=== PATIENT | male | born 1935 | race Caucasian/White ===

== ENCOUNTER → 2017-06-22 | Outpatient (CLI) | payer MEDICARE, BC ==
[~2017-06-22] MED LIST: ASPI-496 PO; CEFD300C37 PO; DIGO250T PO; FINA5TAB4 PO; FURO-93 PO; GABA-826 PO; LISI-167 PO; METF500T4 PO; METR500T PO; OMEP-110 PO; PRED10TA PO; SIMV40TA PO; TERA5CAP3 PO; TIOT18CA INH
[2017-06-22 09:41] LABS: BLOOD UREA NITROGEN 17 mg/dL (7-18)
[2017-06-22 09:42] LABS: ASPARTATE AMINO TRANSFERASE 26 U/L (15-37)
== END | disposition home or self-care (01) ==
LOC: LAB 09:13
PROVIDERS: ATTEND Internal Medicine Cardiovascular Disease
DX: E78.2 Mixed hyperlipidemia (principal); I10 Essential (primary) hypertension
CPT/HCPCS: 36415; 80053; 80061

== ENCOUNTER → 2018-08-09 | Outpatient (CLI) | payer MEDICARE, BC ==
[~2018-08-09] MED LIST changes: +METF500T17 PO; -METF500T4 PO
[2018-08-09 15:55] LABS: ALBUMIN 3.3 g/dL (3.4-5.0); ANION GAP 6 mmol/L (5-15); CALCIUM 8.4 mg/dL (8.5-10.1); CHLORIDE 97 mmol/L (98-107)
[2018-08-09 16:00] LABS: ALANINE AMINOTRANSFERASE 39 U/L (12-78); ALKALINE PHOSPHATASE 91 U/L (45-117); BILIRUBIN,TOTAL 0.6 mg/dL (0.2-1.0); CREATININE 0.63 mg/dL (0.7-1.3); TOTAL PROTEIN 6.2 g/dL (6.4-8.2)
== END | disposition home or self-care (01) ==
LOC: CFH 11:52
PROVIDERS: ATTEND Internal Medicine Cardiovascular Disease
DX: I10 Essential (primary) hypertension (principal); E78.2 Mixed hyperlipidemia; R06.00 Dyspnea, unspecified; E11.9 Type 2 diabetes mellitus without complications; Z87.891 Personal history of nicotine dependence; Z88.1 Allergy status to other antibiotic agents
CPT/HCPCS: 36415; 80053; 83880

== ENCOUNTER → 2018-09-20 | Outpatient (CLI) | payer MEDICARE, BC | END | disposition home or self-care (01) | LOC: CVU 10:33 | PROVIDERS: ATTEND Internal Medicine Cardiovascular Disease | DX: I07.1 Rheumatic tricuspid insufficiency (principal); I37.1 Nonrheumatic pulmonary valve insufficiency; I10 Essential (primary) hypertension | CPT/HCPCS: 93306 ==

== ENCOUNTER → 2019-05-06 | Outpatient (CLI) | payer MEDICARE, BC ==
[2019-05-06 13:21] LABS: CHLORIDE 99 mmol/L (98-107)
[2019-05-06 13:26] LABS: ANION GAP 3 mmol/L (5-15); CALCIUM 8.3 mg/dL (8.5-10.1); CREATININE 0.76 mg/dL (0.7-1.3)
== END | disposition home or self-care (01) ==
LOC: CFH 11:12
PROVIDERS: ATTEND Nurse Practitioner Family
DX: I10 Essential (primary) hypertension (principal); I42.9 Cardiomyopathy, unspecified; I48.2 Chronic atrial fibrillation; Z95.0 Presence of cardiac pacemaker
CPT/HCPCS: 36415; 80048

== ENCOUNTER → 2019-10-02 | Outpatient (CLI) | payer MEDICARE, BC | END | disposition home or self-care (01) | LOC: CFH 12:21 | PROVIDERS: ATTEND Nurse Practitioner Family | DX: I48.91 Unspecified atrial fibrillation (principal); I10 Essential (primary) hypertension; I42.9 Cardiomyopathy, unspecified; K74.0 Hepatic fibrosis | CPT/HCPCS: 71046 ==

== ENCOUNTER 2020-02-09 23:57 | Inpatient (IN) | payer MEDICARE, BC ==
[~2020-02-09] VITALS: Ht 185.4 cm; Wt 101.7 kg
[~2020-02-09 23:57] MED LIST changes: -DIGO250T PO; +DIGO250T3 PO; +ETOMIDATE 20 MG/10 ML ONE; +MIDAZOLAM 1 MG/ML, 5ML ONE; +PROPOFOL 10 MG/ML, 100ML IV ONE
--- NOTE | 2020-02-10 | NUR ---
assessment made. ERP at bedside. patient tranferred from [facility]. c/o SOB and high fever - 104.7 , intubated upon arrival to ED.
--- NOTE | 2020-02-10 00:05 | NUR ---
propofol drip started. IVF hung. 1 liter bolus per ERP. hypotensive.
[2020-02-10] MEDS ORDERED: CEFTRIAXONE PMX 1GM/50ML 50 ML ONE (00:27)
[2020-02-10] MEDS ORDERED: VANCOMYCIN 2,400 MG in SODIUM CHLORIDE 0.9% 500 ML IV ONE (00:30)
[2020-02-10] MEDS ORDERED: VANCOMYCIN PER PHARMACY MC ONE (00:30)
[2020-02-10] MEDS ORDERED: SODIUM CHLORIDE 0.9% 1,000ML IVBOLUS ONE ×2 (00:30→01:30)
[2020-02-10] MEDS ORDERED: CEFTRIAXONE PMX 1GM/50ML 50 ML IV ONE (00:30)
--- NOTE | 2020-02-10 00:30 | NUR ---
clinical laboratory medical director at bedside for blood draw.
[2020-02-10] MEDS ORDERED: MIDAZOLAM HCL 50 MG in SODIUM CHLORIDE 0.9% 40 ML IV PRN (00:42)
--- NOTE | 2020-02-10 00:45 | NUR ---
blood cultures x 2 drawn. antibiotic started.
[2020-02-10 00:46] LABS: RAPID INFLUENZA A Negative (Negative); RAPID INFLUENZA B Negative (Negative)
[2020-02-10 00:51] LABS: MEAN CORPUSCULAR HEMOGLOBIN 30.9 pg (27.5-34.5); MEAN CORPUSCULAR VOLUME 93.4 fL (81-97); MEAN PLATELET VOLUME 7.2 fL (7.4-10.4); PLATELET COUNT 166 x10^3/uL (130-400); RED BLOOD COUNT 4.07 x10^6/uL (4.38-5.82); RED CELL DISTRIBUTION WIDTH 15.2 % (9.4-14.8)
[2020-02-10] MEDS ORDERED: MIDAZOLAM 1 MG/ML, 5ML IVPush ONE (01:00)
[2020-02-10] MEDS ORDERED: ACETAMINOPHEN 650 MG SUPP PR PRN (01:00)
[2020-02-10 01:05] LABS: ALANINE AMINOTRANSFERASE 21 U/L (12-78); ALBUMIN 1.9 g/dL (3.4-5.0); ANION GAP 7 mmol/L (5-15); CALCIUM 6.5 mg/dL (8.5-10.1); CHLORIDE 101 mmol/L (98-107); CREATININE 0.54 mg/dL (0.7-1.3)
[2020-02-10 01:09] LABS: ALKALINE PHOSPHATASE 89 U/L (45-117); TOTAL PROTEIN 4.6 g/dL (6.4-8.2)
[2020-02-10 01:10] LABS: TROPONIN I 0.189 ng/mL (0.000-0.045)
[2020-02-10 01:12] LABS: MD YES
[2020-02-10] MEDS ORDERED: ACETAMINOPHEN 325 MG SUPP ONE (01:13)
[2020-02-10 01:14] LABS: BAND#(MANUAL) 1.84 x10^3/uL; BANDS%(MANUAL) 11 % (0-7); MONOS#(MANUAL) 1.17 x10^3/uL (0.3-2.7); MONOS% (MANUAL) 7 % (2-9); SEG#(MANUAL) 13.69 x10^3/uL (1.8-6.8); SEGS% (MANUAL) 82 % (42-75)
[2020-02-10 01:15] LABS: ANISOCYTOSIS 1+
[2020-02-10 01:16] LABS: <PLATELET ESTIMATE> ADEQUATE; <PLT MORPHOLOGY> NORMAL PLT MORPH; POLYCHROMASIA 1+
--- NOTE | 2020-02-10 01:20 | NUR ---
Dr. Colvin at bedside. admission orders made.
[2020-02-10] MEDS ORDERED: AZITHROMYCIN 500 MG in SODIUM CHLORIDE 0.9% 250 ML IV ONE (01:30)
--- NOTE | 2020-02-10 01:52 | NUR ---
patient wake. sedation increased.
[2020-02-10] MEDS ORDERED: PROMETHAZINE 25 MG/ML, 1ML IM PRN (02:00)
[2020-02-10] MEDS ORDERED: CEFTRIAXONE PMX 2GM/50ML 50 ML IV SCH (02:00)
[2020-02-10] MEDS ORDERED: ONDANSETRON 2MG/ML, 2ML IVPush PRN (02:00)
--- NOTE | 2020-02-10 02:25 | NUR ---
bed assigned. report to ESSIE Hughes.
[2020-02-10] MEDS ORDERED: methylPREDNISolone SOD SUCC 125 MG/2 ML IVPush SCH (02:30)
[2020-02-10] MEDS: LINEZOLID PMX 600MG/300ML 300 ML IV SCH ×2 (03:32→14:23)
[2020-02-10] MEDS: POTASSIUM CHLORIDE 20 MEQ in SODIUM CHLORIDE 0.9% 1,000 ML IV SCH ×2 (03:33→13:25)
[2020-02-10] MEDS: ENOXAPARIN 40 MG/0.4 ML SQ SCH (03:33)
[2020-02-10] MEDS ORDERED: NOREPINEPHRINE 8 MG in SODIUM CHLORIDE 0.9% 242 ML IV PRN (04:04)
[2020-02-10] MEDS: PROPOFOL 100 ML IV PRN ×5 (04:30→23:23)
[2020-02-10] MEDS ORDERED: PHARMACY MAY ADJ FOR RENAL FX MC SCH (04:30)
[2020-02-10] MEDS ORDERED: LIDOCAINE-MPF 1%, 2ML ENDO PRN (04:30)
[2020-02-10 06:16] LABS: MEAN CORPUSCULAR HEMOGLOBIN 30.9 pg (27.5-34.5); MEAN CORPUSCULAR HGB CONC 33.1 g/dL (33.2-36.2); MEAN CORPUSCULAR VOLUME 93.3 fL (81-97); MEAN PLATELET VOLUME 7.5 fL (7.4-10.4); PLATELET COUNT 164 x10^3/uL (130-400); RED BLOOD COUNT 3.82 x10^6/uL (4.38-5.82); RED CELL DISTRIBUTION WIDTH 15.1 % (9.4-14.8)
[2020-02-10 06:26] LABS: ALANINE AMINOTRANSFERASE 24 U/L (12-78); ALBUMIN 1.8 g/dL (3.4-5.0); ANION GAP 5 mmol/L (5-15); CALCIUM 6.7 mg/dL (8.5-10.1); CHLORIDE 101 mmol/L (98-107); CREATININE 0.62 mg/dL (0.7-1.3)
[2020-02-10 06:30] LABS: ALKALINE PHOSPHATASE 90 U/L (45-117); TOTAL PROTEIN 4.6 g/dL (6.4-8.2); TROPONIN I 0.303 ng/mL (0.000-0.045)
[2020-02-10 06:46] LABS: MD YES
[2020-02-10 06:48] LABS: ANISOCYTOSIS 1+; BAND#(MANUAL) 3.04 x10^3/uL; BANDS%(MANUAL) 18 % (0-7); MONOS#(MANUAL) 0.34 x10^3/uL (0.3-2.7); MONOS% (MANUAL) 2 % (2-9); OVALOCYTES 1+; POLYCHROMASIA 1+; SEG#(MANUAL) 13.52 x10^3/uL (1.8-6.8); SEGS% (MANUAL) 80 % (42-75)
[2020-02-10 06:49] LABS: <PLATELET ESTIMATE> ADEQUATE; <PLT MORPHOLOGY> NORMAL PLT MORPH; PMNS WITH VACUOLES 1+
[2020-02-10] MEDS ORDERED: CALCIUM CHLORIDE 10%, 10ML SYR IVPush ONE (07:00)
[2020-02-10] MEDS ORDERED: MAGNESIUM SULFATE PMX 2GM/50ML 50 ML IV ONE (07:00)
[2020-02-10] MEDS ORDERED: CALCIUM CHLORIDE 13.6 MEQ in SODIUM CHLORIDE 0.9% 100 ML IV ONE (07:00)
[2020-02-10] MEDS: MEROPENEM 1 GM in SODIUM CHLORIDE 0.9% 100 ML IV SCH ×3 (08:00→23:22)
[2020-02-10] MEDS: DIGOXIN 0.25 MG TABLET PO SCH (09:39)
[2020-02-10] MEDS: PANTOPRAZOLE 40 MG IV IVPush SCH (09:39)
[2020-02-10] MEDS: GABAPENTIN 100 MG CAPSULE PO SCH ×3 (09:39→21:00)
[2020-02-10 10:40] LABS: MICROSCOPIC INDICATED
[2020-02-10 10:54] LABS: CULTURE INDICATED? YES
[2020-02-10 13:47] LABS: TROPONIN I 0.233 ng/mL (0.000-0.045)
[2020-02-10] MEDS: methylPREDNISolone SOD SUCC 125 MG/2 ML IVPush SCH (14:23)
[2020-02-11] MEDS: LINEZOLID PMX 600MG/300ML 300 ML IV SCH ×2 (03:09→13:37)
[2020-02-11] MEDS: ENOXAPARIN 40 MG/0.4 ML SQ SCH (03:10)
[2020-02-11] MEDS: PROPOFOL 100 ML IV PRN ×6 (03:10→20:16)
[2020-02-11] MEDS: methylPREDNISolone SOD SUCC 125 MG/2 ML IVPush SCH ×2 (03:10→14:43)
[2020-02-11 04:00] VITALS: BP 106/49
[2020-02-11] MEDS: POTASSIUM CHLORIDE 20 MEQ in SODIUM CHLORIDE 0.9% 1,000 ML IV SCH ×2 (04:46→14:44)
[2020-02-11 05:44] LABS: CHLORIDE 102 mmol/L (98-107)
[2020-02-11 05:49] LABS: ANION GAP 6 mmol/L (5-15); CALCIUM 7.6 mg/dL (8.5-10.1)
[2020-02-11 06:01] LABS: MEAN CORPUSCULAR HEMOGLOBIN 30.7 pg (27.5-34.5); MEAN CORPUSCULAR HGB CONC 33.2 g/dL (33.2-36.2); MEAN CORPUSCULAR VOLUME 92.4 fL (81-97); MEAN PLATELET VOLUME 7.7 fL (7.4-10.4); PLATELET COUNT 185 x10^3/uL (130-400); RED BLOOD COUNT 4.39 x10^6/uL (4.38-5.82); RED CELL DISTRIBUTION WIDTH 15.4 % (9.4-14.8)
[2020-02-11 06:13] LABS: BASOPHILS % (AUTO) 0 % (0-1); EOSINOPHILS % (AUTO) 0 % (1-7); LYMPHOCYTES # (AUTO) 0.37 x10^3/uL (1-3.4); LYMPHOCYTES % (AUTO) 3 % (22-44); MD SCAN; MONOCYTES # (AUTO) 0.68 x10^3/uL (0.2-0.8); MONOCYTES % (AUTO) 5 % (2-9); NEUTROPHILS % (AUTO) 92 % (42-75)
[2020-02-11] MEDS: MEROPENEM 1 GM in SODIUM CHLORIDE 0.9% 100 ML IV SCH ×3 (07:52→23:57)
[2020-02-11] MEDS: PANTOPRAZOLE 40 MG IV IVPush SCH (09:58)
[2020-02-11] MEDS: GABAPENTIN 100 MG CAPSULE PO SCH ×3 (09:59→21:26)
[2020-02-11] MEDS: DIGOXIN 0.25 MG TABLET PO SCH (09:59)
[2020-02-11] MEDS ORDERED: ETOMIDATE 20 MG/10 ML IVPush ONE (10:30)
[2020-02-12] MEDS: PROPOFOL 100 ML IV PRN ×4 (00:41→18:04)
[2020-02-12] MEDS: LINEZOLID PMX 600MG/300ML 300 ML IV SCH ×2 (01:18→12:47)
[2020-02-12] MEDS: methylPREDNISolone SOD SUCC 125 MG/2 ML IVPush SCH (03:07)
[2020-02-12] MEDS: ENOXAPARIN 40 MG/0.4 ML SQ SCH (03:08)
[2020-02-12] MEDS: POTASSIUM CHLORIDE 20 MEQ in SODIUM CHLORIDE 0.9% 1,000 ML IV SCH ×2 (03:29→13:06)
[2020-02-12 04:00] VITALS: BP 110/56
[2020-02-12 04:26] LABS: BASOPHILS # (AUTO) 0.01 x10^3/uL (0-0.1); BASOPHILS % (AUTO) 0 % (0-1); EOSINOPHILS # (AUTO) 0.01 x10^3/uL (0-0.4); EOSINOPHILS % (AUTO) 0 % (1-7); LYMPHOCYTES # (AUTO) 0.47 x10^3/uL (1-3.4); LYMPHOCYTES % (AUTO) 4 % (22-44); MD NO; MEAN CORPUSCULAR HGB CONC 33.1 g/dL (33.2-36.2); MEAN CORPUSCULAR VOLUME 93.7 fL (81-97); MEAN PLATELET VOLUME 7.4 fL (7.4-10.4); MONOCYTES # (AUTO) 0.96 x10^3/uL (0.2-0.8); MONOCYTES % (AUTO) 8 % (2-9); NEUTROPHILS # (AUTO) 9.98 x10^3/uL (1.8-6.8); NEUTROPHILS % (AUTO) 87 % (42-75); PLATELET COUNT 160 x10^3/uL (130-400); RED BLOOD COUNT 4.36 x10^6/uL (4.38-5.82); RED CELL DISTRIBUTION WIDTH 15.5 % (9.4-14.8)
[2020-02-12 04:38] LABS: CALCIUM 7.6 mg/dL (8.5-10.1)
[2020-02-12 04:39] LABS: CREATININE 0.51 mg/dL (0.7-1.3)
[2020-02-12 04:48] LABS: ANION GAP 4 mmol/L (5-15); CHLORIDE 107 mmol/L (98-107)
[2020-02-12] MEDS: MEROPENEM 1 GM in SODIUM CHLORIDE 0.9% 100 ML IV SCH ×2 (07:23→14:34)
[2020-02-12] MEDS: PANTOPRAZOLE 40 MG IV IVPush SCH (07:30)
[2020-02-12] MEDS: GABAPENTIN 100 MG CAPSULE PO SCH ×3 (07:30→20:35)
[2020-02-12] MEDS: DIGOXIN 0.25 MG TABLET PO SCH (07:30)
[2020-02-12] MEDS: POLYETHYLENE GLYCOL 17 GM PACKET PO SCH (12:02)
[2020-02-12] MEDS: CEFAZOLIN PMX 1GM/50ML 50 ML IV SCH ×2 (16:06→23:16)
[2020-02-12] MEDS ORDERED: NOREPINEPHRINE 32 MG in SODIUM CHLORIDE 0.9% 218 ML IV PRN (21:00)
[2020-02-13] MEDS: PROPOFOL 100 ML IV PRN ×3 (00:59→08:33)
[2020-02-13] MEDS: ENOXAPARIN 40 MG/0.4 ML SQ SCH (02:05)
[2020-02-13 03:42] LABS: ANION GAP 5 mmol/L (5-15); CALCIUM 7.9 mg/dL (8.5-10.1); CHLORIDE 107 mmol/L (98-107); CREATININE 0.63 mg/dL (0.7-1.3); TRIGLYCERIDES 132 mg/dL (50-200)
[2020-02-13 03:43] LABS: BASOPHILS # (AUTO) 0.02 x10^3/uL (0-0.1); BASOPHILS % (AUTO) 0 % (0-1); EOSINOPHILS # (AUTO) 0.05 x10^3/uL (0-0.4); EOSINOPHILS % (AUTO) 0 % (1-7); LYMPHOCYTES # (AUTO) 1.23 x10^3/uL (1-3.4); LYMPHOCYTES % (AUTO) 10 % (22-44); MD NO; MEAN CORPUSCULAR HEMOGLOBIN 30.6 pg (27.5-34.5); MEAN CORPUSCULAR VOLUME 92.7 fL (81-97); MEAN PLATELET VOLUME 7.6 fL (7.4-10.4); MONOCYTES # (AUTO) 1.34 x10^3/uL (0.2-0.8); MONOCYTES % (AUTO) 11 % (2-9); NEUTROPHILS # (AUTO) 10.15 x10^3/uL (1.8-6.8); NEUTROPHILS % (AUTO) 79 % (42-75); PLATELET COUNT 204 x10^3/uL (130-400); RED BLOOD COUNT 4.92 x10^6/uL (4.38-5.82); RED CELL DISTRIBUTION WIDTH 15.8 % (9.4-14.8)
[2020-02-13 04:00] VITALS: BP 109/56
[2020-02-13] MEDS: PANTOPRAZOLE 40 MG IV IVPush SCH (08:00)
[2020-02-13] MEDS: GABAPENTIN 100 MG CAPSULE PO SCH ×3 (08:32→20:27)
[2020-02-13] MEDS: POLYETHYLENE GLYCOL 17 GM PACKET PO SCH (08:33)
[2020-02-13] MEDS: DIGOXIN 0.25 MG TABLET PO SCH (08:33)
[2020-02-13] MEDS: CEFAZOLIN PMX 1GM/50ML 50 ML IV SCH ×3 (10:24→23:16)
[2020-02-13] MEDS: FENTANYL PF 100 MCG/2ML IVPush PRN ×2 (19:46→21:56)
[2020-02-13] MEDS ORDERED: FENTANYL PF 100 MCG/2ML IVPush PRN (22:30)
[2020-02-14] MEDS: ENOXAPARIN 40 MG/0.4 ML SQ SCH (01:46)
[2020-02-14 03:28] LABS: BASOPHILS # (AUTO) 0.01 x10^3/uL (0-0.1); BASOPHILS % (AUTO) 0 % (0-1); EOSINOPHILS # (AUTO) 0.16 x10^3/uL (0-0.4); EOSINOPHILS % (AUTO) 1 % (1-7); LYMPHOCYTES # (AUTO) 1.24 x10^3/uL (1-3.4); LYMPHOCYTES % (AUTO) 11 % (22-44); MD NO; MEAN CORPUSCULAR HEMOGLOBIN 30.6 pg (27.5-34.5); MEAN CORPUSCULAR HGB CONC 32.9 g/dL (33.2-36.2); MEAN PLATELET VOLUME 7.4 fL (7.4-10.4); MONOCYTES # (AUTO) 1.25 x10^3/uL (0.2-0.8); MONOCYTES % (AUTO) 11 % (2-9); NEUTROPHILS # (AUTO) 8.43 x10^3/uL (1.8-6.8); NEUTROPHILS % (AUTO) 76 % (42-75); PLATELET COUNT 181 x10^3/uL (130-400); RED CELL DISTRIBUTION WIDTH 16.2 % (9.4-14.8)
[2020-02-14 03:37] LABS: ANION GAP 2 mmol/L (5-15); CALCIUM 7.9 mg/dL (8.5-10.1); CHLORIDE 108 mmol/L (98-107); CREATININE 0.58 mg/dL (0.7-1.3)
[2020-02-14 04:00] VITALS: BP 108/48
[2020-02-14] MEDS: CEFAZOLIN PMX 1GM/50ML 50 ML IV SCH (07:43)
[2020-02-14] MEDS: PANTOPRAZOLE 40 MG IV IVPush SCH (07:43)
[2020-02-14] MEDS: DIGOXIN 0.25 MG TABLET PO SCH (09:00)
[2020-02-14] MEDS: POLYETHYLENE GLYCOL 17 GM PACKET PO SCH (09:00)
[2020-02-14] MEDS: GABAPENTIN 100 MG CAPSULE PO SCH (09:00)
[2020-02-14] MEDS ORDERED: SCOPOLAMINE PATCH, 1.5MG PATCH.TD72 TD PRN (14:00)
[2020-02-14] MEDS ORDERED: LORazepam 2 MG/ML, 1ML IV PRN (14:00)
[2020-02-14] MEDS ORDERED: ONDANSETRON 2MG/ML, 2ML IV PRN (14:00)
[2020-02-14] MEDS ORDERED: MORPHINE 30MG/30ML PCA.SYR IV SCH (14:00)
[2020-02-14] MEDS ORDERED: ATROPINE OPHTH SOLN 1%, 5ML PO PRN (14:00)
[2020-02-14] MEDS ORDERED: CEFAZOLIN PMX 1GM/50ML 50 ML IV SCH (14:30)
[2020-02-14] MEDS ORDERED: ENOXAPARIN 40 MG/0.4 ML SQ SCH (14:30)
[2020-02-14] MEDS ORDERED: GABAPENTIN 100 MG CAPSULE PO SCH (16:00)
[2020-02-14] MEDS: MORPHINE 30MG/30ML PCA.SYR IV PRN (17:57)
[2020-02-14] MEDS: LORazepam 2 MG/ML, 1ML IVPush PRN (18:00)
[2020-02-14] MEDS: ATROPINE OPHTH SOLN 1%, 5ML PO PRN (20:21)
[2020-02-14] MEDS ORDERED: SODIUM CHLORIDE FLUSH 10ML SYR IVF SCH (21:00)
[2020-02-15] MEDS: LORazepam 2 MG/ML, 1ML IVPush PRN ×2 (00:43→06:28)
[2020-02-15] MEDS: ATROPINE OPHTH SOLN 1%, 5ML PO PRN ×2 (00:45→03:50)
[2020-02-15] MEDS: MORPHINE 30MG/30ML PCA.SYR IV PRN (03:48)
[2020-02-15] MEDS ORDERED: DIGOXIN 0.25 MG TABLET PO SCH (09:00)
== END 2020-02-15 10:44 | disposition expired | DRG 871 ==
LOC: ED 02-10 00:40 → EDIP 02-10 01:30 → ICU 02-10 02:39 → CCU 02-11 16:45 → 3N 02-14 12:48 → 4NW 02-14 13:45
PROVIDERS: ADMIT Internal Medicine; ATTEND Hospitalist
PROC: 5A1945Z Respiratory Ventilation, 24-96 Consecutive Hours (ICD-10-PCS; principal; 2020-02-10)
PROC: 0BH17EZ Insertion of Endotracheal Airway into Trachea, Via Natural or Artificial Opening (ICD-10-PCS; 2020-02-10)
PROC: 0T9B70Z Drainage of Bladder with Drainage Device, Via Natural or Artificial Opening (ICD-10-PCS; 2020-02-10)
PROC: 5A09357 Assistance with Respiratory Ventilation, Less than 24 Consecutive Hours, Continuous Positive Airway Pressure (ICD-10-PCS; 2020-02-14)
DX: A41.51 Sepsis due to Escherichia coli [E. coli] (principal); G93.41 Metabolic encephalopathy; I50.33 Acute on chronic diastolic (congestive) heart failure; J15.211 Pneumonia due to Methicillin susceptible Staphylococcus aureus; J96.21 Acute and chronic respiratory failure with hypoxia; J96.22 Acute and chronic respiratory failure with hypercapnia; R65.21 Severe sepsis with septic shock; I21.A1 Myocardial infarction type 2; D68.69 Other thrombophilia; E87.1 Hypo-osmolality and hyponatremia; I48.20 Chronic atrial fibrillation, unspecified; J44.0 Chronic obstructive pulmonary disease with (acute) lower respiratory infection; J44.1 Chronic obstructive pulmonary disease with (acute) exacerbation; J95.851 Ventilator associated pneumonia; N39.0 Urinary tract infection, site not specified; Z99.11 Dependence on respirator [ventilator] status; D63.8 Anemia in other chronic diseases classified elsewhere; E11.40 Type 2 diabetes mellitus with diabetic neuropathy, unspecified; E83.51 Hypocalcemia; E87.6 Hypokalemia; E88.09 Other disorders of plasma-protein metabolism, not elsewhere classified; G47.33 Obstructive sleep apnea (adult) (pediatric); I08.1 Rheumatic disorders of both mitral and tricuspid valves; I11.0 Hypertensive heart disease with heart failure; I25.10 Atherosclerotic heart disease of native coronary artery without angina pectoris; I27.20 Pulmonary hypertension, unspecified; J84.10 Pulmonary fibrosis, unspecified; N40.0 Benign prostatic hyperplasia without lower urinary tract symptoms; Y95 Nosocomial condition; Z51.5 Encounter for palliative care; Z66 Do not resuscitate; Z77.090 Contact with and (suspected) exposure to asbestos; Z78.9 Other specified health status; Z87.891 Personal history of nicotine dependence; Z83.3 Family history of diabetes mellitus; Z95.0 Presence of cardiac pacemaker; Z95.5 Presence of coronary angioplasty implant and graft; Z99.81 Dependence on supplemental oxygen; Z88.8 Allergy status to other drugs, medicaments and biological substances
CPT/HCPCS: 36415; 36600; 71045; 80048; 80053; 80162; 81001; 82330; 82803; 83605; 83735; 83880; 84100; 84145; 84478; 84484; 85025; 87040; 87070; 87077; 87081; 87086; 87147; 87186; 87205; 87400; 87486; 87581; 87633; 87798; 87880; 93005; 94002; 94003; 94660; 96365; 96375; G0378; J0456; J0690; J0696; J1650; J2020; J2185; J2250; J2270; J2704; J3010; J3370; J3480; C9113; J2060; J2930; J3475; J7030; J7040; J7050